=== PATIENT | male | born 1940 | race Caucasian/White ===

== ENCOUNTER → 2017-01-27 | Outpatient (CLI) | payer OTHER ==
[~2017-01-27] MED LIST: ADRENOID CAPSU1 EACH PO; ALBUTEROL17 GM INH; AMBIEN PO; AMBIEN10 MG PO; ASPIRIN PO; ASPIRIN81 M2 PO; B COMPLEX1 TAB PO; BUMEX1 MG PO; CLOPIDOGREL75 MG PO; FAMOTIDINE PO; FAMOTIDINE20 M1 PO; FAMOTIDINE20 MG PO; FISH OIL 1,001000 MG PO; FISH OIL300 MG PO; GLUCOPHAGE500 M1 PO; IMDUR PO; ISORDIL PO; LANSOPRAZOLE30 M2 PO; LEVAQUIN750 MG PO; LIPITOR PO; LISINOPRIL PO; LISINOPRIL10 MG PO; LOPRESSOR PO; METFORMIN HCL500 M1 PO; METFORMIN PO; NITROSTAT0.4 MG SL; OCEAN45 ML; OXYGEN; PEPCID PO; PLAVIX PO; PREDNISONE10 MG PO; PRILOSEC PO; SIMVASTATIN40 MG PO; SPIRIVA18 MCG INH; VIBRAMYCIN100 M1; VIT B-12 PO; VYTORIN PO; XANAX0.5 M1 PO; XANAX0.5 MG PO; ZESTRIL10 MG PO; ZOCOR PO
--- NOTE | ~2017-01-27 | CT55 ---
[facility] A Service of [facility] RADIOLOGY TEXT RESULTS PATIENT: DOROTEO VERDE [facility] #: [id number] AGE: [address]: Maribel Florez MD SEX: M ORDER DR: [id number] [facility] [address] [place], [place] [address] [id number] O MR#: [id number] Acc #: [id number] NAME: DOROTEO VERDE. : 1940 SEX: M STUDY DATE/TIME: 01/27/2017 12:02 UNIT: [facility] ROOM: STUDY DESCRIPTION: CT Chest W Con Attending Physician: Maribel Florez M.D., Ph.D. Referring Physician: Maribel Florez M.D., Ph.D. Ordering Physician: Maribel Florez M.D., Ph.D. Primary Care Physician: Daphnie Zaidi M.D. MEDICAL IMAGING REPORT This report is preliminary unless electronic signature is present EXAM CT of the chest with contrast INDICATION Lung cancer. Patient has diagnosed 1-1/2 years ago and was noted to have a left lower lobe pulmonary nodule which increased in size on the patient's most recent chest CT from October 2016. Patient has been treated with Opdivo therapy. He also reports shortness of breath for 1 year. This exam is requested for surveillance for metastatic disease. TECHNIQUE Axial CT images were obtained from the thoracic inlet through the dome of the diaphragm following the administration of intravenous contrast material. This CT exam was performed with one or more of the following radiation dose reduction techniques: automatic exposure control, adjustment of mA and/or kV according to patient size, and iterative reconstruction. FINDINGS This patient has advanced background emphysematous changes as well as fibrotic changes within both lungs. These are more pronounced on the right. On prior CT from October 2016 this patient was noted to have a left lower lobe pulmonary nodule. This area now has the appearance more of consolidation rather than a nodule and has decreased in size now measuring 3.0 x 1.8 cm, previously 3.7 x 2.8 cm. I do not see any new pulmonary nodules or masses. The thyroid gland and trachea appear unremarkable. Patient's esophagus is thick-walled. This is unchanged when compared to the prior examination. Mediastinal lymph nodes really do not appear pathologically enlarged. On prior study the patient is noted have an enlarged subcarinal lymph node measuring up to about 1.4 cm in short-axis dimensions. On today's exam it [facility] A Service of [facility] RADIOLOGY TEXT RESULTS PATIENT: DOROTEO VERDE LOCATION: [facility] : 40 UNIT #: [id number] AGE: [address]: Maribel Florez MD SEX: M ORDER DR: measures about 6.0 mm in short-axis dimensions. There is some trace pericardial fluid/thickening. No pleural effusion is seen. There are coronary artery calcifications. The thoracic aorta measures within normal size limits. Main pulmonary artery is enlarged. Patient's CT of the abdomen will be dictated separately. I do not see any aggressive osseous abnormalities. IMPRESSION 1. Patient has evidence of response to therapy. Previously identified nodule within the left lower lobe has decreased in size and now really has more an appearance of consolidation rather than discrete mass. No new pulmonary nodules or masses are identified. 2. Advanced bilateral emphysematous changes with pulmonary fibrosis noted within both lungs, right greater than left. 3. Enlargement of the main pulmonary artery. This finding can be seen in the setting of pulmonary arterial hypertension. 4. Diffusely thick-walled esophagus. Similar findings were present on prior exam from October 2016. Correlation with any evidence of esophagitis is suggested. 5. Previously noted enlarged subcarinal lymph node is diminished in size, again likely reflecting some response to therapy. Dictated by... Kenia Woods M.D. THIS IS AN ELECTRONICALLY VERIFIED REPORT Kenia Woods M.D. at 01/28/2017 12:56 PM VALE/tomasa TD: 01/28/2017 11:27 JOB #: [id number] MEDICAL IMAGING REPORT Page 1 of 1 COPY
--- NOTE | ~2017-01-27 | CT5 ---
[facility] A Service of [facility] & [facility] RADIOLOGY TEXT RESULTS PATIENT: DOROTEO VERDE [facility] UN[facility] #: [id number] AGE: [address]: Maribel Florez MD SEX: M ORDER DR: [id number] [facility] [address] [place], [place] [address] [id number] O MR#: [id number] Acc #: [id number] NAME: DOROTEO VERDE : 1940 SEX: M STUDY DATE/TIME: 01/27/2017 12:02 UNIT: [facility] ROOM: STUDY DESCRIPTION: CT Abdomen W Cont Attending Physician: Maribel Florez M.D., Ph.D. Referring Physician: Maribel Florez M.D., Ph.D. Ordering Physician: Maribel Florez M.D., Ph.D. Primary Care Physician: Daphnie Zaidi M.D. MEDICAL IMAGING REPORT This report is preliminary unless electronic signature is present EXAM CT of the abdomen with contrast. INDICATION This patient is a 76-year-old man with history of left lung cancer. He was noted to have an enlarging left lower lobe nodule on his most recent CT from October 2016 and has been treated with OPDIVO. This exam was requested for surveillance for metastatic disease. COMPARISON Comparison is made to a prior exam from October 28, 2016. TECHNIQUE Axial CT imaging was obtained from the dome of the diaphragm through the abdomen. Following the administration of IVC. demonstration of intravenous contrast material. This CT exam was performed with one or more of the following radiation dose reduction techniques: automatic exposure control, adjustment of mA and/or kV according to patient size, and iterative reconstruction. FINDINGS Within the liver, there is a 1.5 x 1.2 cm subtle hypoattenuating lesion within the medial segment of the left hepatic lobe. It was not clearly identified on the exam from July 2015. In retrospect, it may have been present in July 2016, measuring about 1.1 x 0.7 cm. On today's exam, it measured at about 1.5 x 1.2 cm, which I would doubt this is significantly changed when compared to the most recent CT. It remains, however, indeterminate, as it was not present on more remote exams. No new hepatic lesions are seen. Calcified granulomata are identified within the spleen. This patient has a low-attenuation lesion identified within the pancreas, which again was not present in July 2015, but was presence in July 2016. Again, both benign and malignant etiologies remain in the differential. Proximal small bowel is within normal limits, [facility] A Service of [facility] RADIOLOGY TEXT RESULTS PATIENT: DOROTEO VERDE LOCATION: [facility] : 40 UNIT #: [id number] AGE: [address]: Maribel Florez MD SEX: M ORDER DR: as are the adrenal glands. The kidneys appear normal. There is no evidence of mechanical bowel obstruction. There is aneurysmal dilatation of the infrarenal abdominal aorta which measures up to 2.8 x 2.7 cm. Patient does have some colonic diverticulosis, although I do not see any evidence of diverticulitis within the visualized colon. Review of bony windows does not demonstrate any aggressive osseous abnormalities. IMPRESSION 1. The patient is again noted to have indeterminate low-attenuation lesion within the medial hepatic segment, which I suspect is probably stable when compared to the exam from October 2016, although it is slightly larger than on the exam from July 2016. It was not present in July 2015. This nodule remains indeterminate. PET potentially may allow for additional characterization. Patient also has a low attenuation lesion seen within the body of the pancreas. This was also present in July 2016, but was not seen in July 2015. As has been discussed previously, both benign and malignant etiologies remain in the differential. This would be better characterized with pancreas protocol CT or MRI. 2. Also noted, but not mentioned in the report, is cholelithiasis without evidence of acute cholecystitis. 3. 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 4. Please see the separately dictated report for findings within the thorax. Dictated by... Kenia Woods M.D. THIS IS AN ELECTRONICALLY VERIFIED REPORT Kenia Woods M.D. at 01/28/2017 12:54 PM VALE/teresa TD: 01/28/2017 12:13 JOB #: [id number] MEDICAL IMAGING REPORT Page 1 of 1 COPY
[2017-01-27 15:26] LABS: POC - CREATININE 1.02 mg/dL (0.64-1.27); POC - GFR >60.0 mL/min (>60)
== END | disposition home or self-care (01) ==
LOC: CCAT 10:42
PROVIDERS: Internal Medicine Hematology & Oncology
DX: C34.30 Malignant neoplasm of lower lobe, unspecified bronchus or lung (principal); R91.1 Solitary pulmonary nodule; J84.10 Pulmonary fibrosis, unspecified; I77.89 Other specified disorders of arteries and arterioles; K22.8 Other specified diseases of esophagus; K80.20 Calculus of gallbladder without cholecystitis without obstruction; I71.4 Abdominal aortic aneurysm, without rupture; K76.9 Liver disease, unspecified; K86.89 Other specified diseases of pancreas
CPT/HCPCS: 71260; 74160; 82565; Q9967

== ENCOUNTER → 2017-05-14 | Outpatient (CLI) | payer OTHER ==
--- NOTE | ~2017-05-14 | CT5 ---
[facility] A Service of [facility] RADIOLOGY TEXT RESULTS PATIENT: DOROTEO VERDE [facility] UN[facility] #: [id number] AGE: [address]: Maribel Flroez MD SEX: M ORDER DR: [id number] [facility] [address] [place], [place] [address] [id number] O MR#: [id number] Acc #: [id number] NAME: DOROTEO VERDE. : 1940 SEX: M STUDY DATE/TIME: 05/14/2017 13:50 [facility] RO[facility]: STUDY DESCRIPTION: CT Abdomen W Cont Attending Physician: Maribel Florez M.D., Ph.D. Referring Physician: Maribel Florez M.D., Ph.D. Ordering Physician: Maribel Florez M.D., Ph.D. Primary Care Physician: Daphnie Zaidi M.D. MEDICAL IMAGING REPORT This report is preliminary unless electronic signature is present EXAM CT abdomen with contrast INDICATION Restaging lung cancer. Observation for metastatic disease. PROCEDURE Contrast-enhanced CT of the abdomen. This CT exam was performed with one or more of the following radiation dose reduction techniques: automatic exposure control, adjustment of mA and/or kV according to patient size, and iterative reconstruction. COMPARISON 01/27/2017 FINDINGS Refer to separately dictated chest CT. Area of low attenuation in segment 4 of the liver measures up to 2.5 cm, previously 1.5 cm. This difference may be related to differences in phase of enhancement. No new liver lesions. Spleen, kidneys, adrenal glands are unremarkable. Cyst in the body of the pancreas measures 9.0 mm and is unchanged. Uncomplicated cholelithiasis. Bowel loops are nondilated. No adenopathy. No aggressive appearing bone lesion. IMPRESSION 1. Low-attenuation lesion segment 4 the liver measures slightly larger than on the previous study but remains indeterminate. The difference may simply be related to the differences in phase of enhancement. There is no new liver lesion or evidence for metastatic disease [facility] A Service of [facility] RADIOLOGY TEXT RESULTS PATIENT: DOROTEO VERDE LOCATION: [facility] : 40 UNIT #: [id number] AGE: [address]: Maribel Florez MD SEX: M ORDER DR: elsewhere in the abdomen. 2. Stable cyst in the pancreatic body. 3. Other findings as above. Dictated by... Kieran Ambrocio M.D. THIS IS AN ELECTRONICALLY VERIFIED REPORT Kieran Ambrocio M.D. at 05/19/2017 8:18 AM Maco TD: 05/15/2017 08:34 JOB #: [id number] MEDICAL IMAGING REPORT Page 1 of 1 COPY
--- NOTE | ~2017-05-14 | CT55 ---
[facility] A Service [facility] RADIOLOGY TEXT RESULTS PATIENT: DOROTEO VERDE LOCATION: [facility] : 40 UNIT #: [id number] AGE: [address]: Maribel Florez MD SEX: M ORDER DR: [id number] [facility] [address] [place], [place] [address] [id number] O MR#: [id number] [facility] #: [id number] NAME: DOROTEO VERDE. : 1940 SEX: M STUDY DATE/TIME: 05/14/2017 13:50 UNIT: [facility] ROOM: STUDY DESCRIPTION: CT Chest W Con Attending Physician: Maribel Florez M.D., Ph.D. Referring Physician: Maribel Florez M.D., Ph.D. Ordering Physician: Maribel Florez M.D., Ph.D. Primary Care Physician: Daphnie Zaidi M.D. MEDICAL IMAGING REPORT This report is preliminary unless electronic signature is present EXAM CT chest with contrast INDICATION Restaging lung cancer. Observation for response to therapy. PROCEDURE Contrast-enhanced CT of the chest. This CT examination was performed with one or more of the following radiation dose reduction techniques: automatic exposure control, adjustment of mA and/or kV according to patient size, and iterative reconstruction. COMPARISON 01/27/2017. FINDINGS Area of consolidation in the posterior left lower lobe measures up to 3.4 cm, not significantly changed from the previous study. Redemonstration of fibrosis in both lungs right greater than left. No new nodules. No new or enlarging adenopathy in the chest. Redemonstration of mild diffuse esophageal thickening. Coronary artery calcification. No aggressive appearing bone lesion. IMPRESSION 1. Area of opacity in the posterior left lower lobe is not significantly changed from 01/27/2017 and there is no new pulmonary nodule. 2. Stable fibrosis in both lungs. 3. No evidence for disease progression. 4. Persistent esophageal thickening. [facility] A Service [facility] RADIOLOGY TEXT RESULTS PATIENT: DOROTEO VERDE LOCATION: [facility] : 40 UNIT #: [id number] AGE: [address]: Maribel Florez MD SEX: M ORDER DR: Dictated by... Kieran Ambrocio M.D. THIS IS AN ELECTRONICALLY VERIFIED REPORT Kieran Ambrocio M.D. at 05/19/2017 8:18 AM RICHELLE/robin TD: 05/15/2017 08:39 JOB #: [id number] MEDICAL IMAGING REPORT Page 1 of 1 COPY
[2017-05-15 06:51] LABS: POC - CREATININE 0.93 mg/dL (0.64-1.27); POC - GFR >60.0 mL/min (>60)
== END | disposition home or self-care (01) ==
LOC: CCAT 13:03
PROVIDERS: Internal Medicine Hematology & Oncology
DX: C34.30 Malignant neoplasm of lower lobe, unspecified bronchus or lung (principal); R11.2 Nausea with vomiting, unspecified; K76.89 Other specified diseases of liver; K86.2 Cyst of pancreas; K80.20 Calculus of gallbladder without cholecystitis without obstruction; J84.10 Pulmonary fibrosis, unspecified; K22.8 Other specified diseases of esophagus
CPT/HCPCS: 71260; 74160; 82565; Q9967